=== PATIENT | male | born 1965 | race Caucasian/White ===

== ENCOUNTER 2022-03-18 07:30 | Inpatient (IN) | payer BC, OTHER ==
[2022-03-18 09:02] LABS: Hemoglobin 17.3 g/dL (13.5-17.5); Mean Corpuscular HGB CONC 34.3 g/dL (32.0-36.0); Mean Corpuscular Volume 87.3 fl (81.2-95.1); Mean Platelet Volume 9.3 fl (7.4-10.4); Platelet Count 249 10x3/uL (150-450); Red Blood Cell (RBC) Count 5.77 10x6/uL (4.32-5.72); White Blood Cell (WBC) Count 6.7 10x3/uL (3.5-10.5)
[2022-03-18 09:38] LABS: Anion Gap 17 mmol/L (10-20); BUN (Urea Nitrogen) 22 mg/dL (8.4-25.7); Calc. Creatinine Clearance 0 mL/min (70-130); Calcium 9.5 mg/dL (7.8-10.44); Carbon Dioxide 24 mmol/L (22-29); Chloride 95 mmol/L (98-107); Estimated GFR 88; Glucose 87 mg/dL (70-105); Potassium 4.2 mmol/L (3.5-5.1); Sodium 132 mmol/L (136-145)
[2022-03-19] MEDS ORDERED: Heparin 10,000 UNITS/1 ML VIAL 30,000 UNITS in Sodium Chloride 0.9% 1,000 ML FS SCH (07:45)
[2022-03-19] MEDS ORDERED: Midazolam HCl 5 mg/5 ml Vial ONE (07:50)
[2022-03-19] MEDS ORDERED: Fentanyl 250 MCG/5 ML VIAL ONE (07:50)
[2022-03-19] MEDS ORDERED: Dexamethasone 4 mg/ml Vial ONE (08:00)
[2022-03-19] MEDS ORDERED: Albumin 5% 500 ML ONE (08:00)
[2022-03-19] MEDS ORDERED: Bupivacaine HCl 0.5%/Epinephrine 1:200,000/PF 30 ml Vial ONE (08:00)
[2022-03-19] MEDS ORDERED: PHENYLEPHRINE-NS 100 MCG/ML 10 ML SYRINGE ONE (08:01)
[2022-03-19 08:46] LABS: SARS-CoV-2 NAA Rapid Test Not Detected (NotDetected)
[2022-03-19] MEDS ORDERED: Lidocaine 1% MPF 2 ML VIAL ONE (08:57)
[2022-03-19] MEDS ORDERED: Midazolam HCl 2 mg/2 ml Vial ONE ×2 (09:22→10:09)
[2022-03-19] MEDS ORDERED: Sodium Chloride 0.9% 100 ML ONE (10:17)
[2022-03-19] MEDS ORDERED: CEFAZOLIN 2 GM VIAL ONE (10:17)
[2022-03-19] MEDS ORDERED: Lidocaine 2% PF 100 mg/5 ml Syringe ONE (10:39)
[2022-03-19] MEDS ORDERED: Protamine Sulfate 50 MG/5 ML VIAL ONE (10:39)
[2022-03-19] MEDS ORDERED: Calcium Chloride 1 GM/10 ML Abboject SYRINGE ONE (10:39)
[2022-03-19] MEDS ORDERED: Vecuronium 10 MG VIAL ONE (10:39)
[2022-03-19] MEDS ORDERED: Cardioplegic Soln 1,000 ML BAG ONE (10:39)
[2022-03-19] MEDS ORDERED: PROPOFOL 200 MG/20 ML VIAL ONE (10:39)
[2022-03-19] MEDS ORDERED: Heparin 5,000 UNITS/ML VIAL ONE (10:39)
[2022-03-19] MEDS ORDERED: Sodium Bicarb 50 MEQ/50 ML VIAL ONE (10:39)
[2022-03-19] MEDS ORDERED: Metoclopramide HCl 10 MG/2 ML VIAL ONE (10:39)
[2022-03-19] MEDS ORDERED: Vancomycin 1 GM VIAL ONE (10:39)
[2022-03-19] MEDS ORDERED: Heparin 30,000 units/30 ml VIAL ONE (10:39)
[2022-03-19] MEDS ORDERED: Papaverine 60 MG/2 ML VIAL ONE (10:39)
[2022-03-19] MEDS ORDERED: Thrombin 5000 UNITS/5 ML VIAL ONE (10:39)
[2022-03-19] MEDS ORDERED: Aminocaproic Acid 5 GM/20 ML VIAL ONE (10:39)
[2022-03-19] MEDS ORDERED: Mannitol 12.5 GM/50 ML ONE (10:39)
[2022-03-19] MEDS ORDERED: hydrALAZINE 20 MG/ML VIAL SLOW IVP PRN (13:04)
[2022-03-19] MEDS ORDERED: Bisacodyl 5 MG TAB PO PRN (13:04)
[2022-03-19] MEDS ORDERED: niCARdipine 25 MG in Sodium Chloride 0.9% 250 ML 250 ML IVPB PRN (13:04)
[2022-03-19] MEDS ORDERED: Bisacodyl 10 MG SUPP PR PRN (13:04)
[2022-03-19] MEDS ORDERED: Mag-Al 1200 mg/1200 mg/30 ML UDCUP PO PRN (13:04)
[2022-03-19] MEDS ORDERED: Acetaminophen 325 MG TAB PO PRN (13:04)
[2022-03-19] MEDS ORDERED: Guaifenesin DM 100-10/5 ML UDCUP PO PRN (13:04)
[2022-03-19] MEDS ORDERED: NOREPINEPHRINE 8 MG/250 ML-D5W 250 ML IVPB PRN (13:04)
[2022-03-19] MEDS ORDERED: Ondansetron PF 4 MG/2 ML Vial IVP PRN (13:04)
[2022-03-19] MEDS ORDERED: Lactated Ringer's 1,000 ML IV SCH (13:04)
[2022-03-19] MEDS ORDERED: Potassium Chloride 20 MEQ/100 ML PREMIX BAG IVPB PRN (13:04)
[2022-03-19] MEDS ORDERED: Hetastarch 6% 500 ML 500 ML IVPB PRN (13:04)
[2022-03-19] MEDS ORDERED: FENTANYL 50 MCG/ML 1 ML VIAL SLOW IVP PRN ×2 (13:15→13:16)
[2022-03-19] MEDS ORDERED: Morphine 4 MG/ML VIAL SLOW IVP PRN (13:23)
[2022-03-19] MEDS ORDERED: Ketorolac Tromethamine 30 MG/ML VIAL IVP SCH (13:30)
[2022-03-19] MEDS ORDERED: Dextrose 50% Abboject 50 ML SYRINGE SLOW IVP PRN (13:30)
[2022-03-19] MEDS ORDERED: Dextrose 5% in Water 1,000 ML IV PRN (13:30)
[2022-03-19 13:41] LABS: Actual Bicarbonate (HCO3a) 23.7 mEq/L (22-28); Base Excess (BEa) -2.4 mEq/L (-2.0 to +3.0); CO2 Tension 45.2 mmHg (35.0-45.0); Calcium, Ionized (arterial) 1.09 mmol/L (1.12-1.30); Carboxyhemoglobin (COHb) 0.8 gm% (0.0-3.0); Hemoglobin (Hb) 16.2 g/dL (14.0-18.0); O2 Tension (PaO2), arterial 112.1 mmHg (80.0-100.0); Potassium - ABG Lab 4.25 mmol/L (3.70-5.30); pH, Arterial 7.34 (7.35-7.45)
[2022-03-19 13:43] LABS: Puncture Site Arterial Line
[2022-03-19] MEDS: Insulin Regular 300 UNITS/3 ML VIAL SC PRN ×4 (13:48→22:59)
[2022-03-19 14:18] LABS: Hemoglobin 15.4 g/dL (14.0-18.0); Mean Corpuscular Hemoglobin 30.7 pg (27.0-31.0); Mean Platelet Volume 7.1 fL (7.4-10.4); Platelet Count 218 10x3/uL (130-400); RBC Distribution Width 12.9 % (11.5-14.5); Red Blood Cell (RBC) Count 5.02 mill/uL (4.70-6.10)
[2022-03-19 14:28] LABS: Anion Gap 13 mmol/L (10-20); BUN (Urea Nitrogen) 15 mg/dL (8.4-25.7); Calc. Creatinine Clearance 126 mL/min (70-130); Calcium 7.4 mg/dL (7.8-10.44); Carbon Dioxide 21 mmol/L (22-29); Chloride 103 mmol/L (98-107); Estimated GFR 103; Glucose 136 mg/dL (70-105); Potassium 4.3 mmol/L (3.5-5.1); Sodium 133 mmol/L (136-145)
[2022-03-19 14:36] LABS: INR-International Normal Ratio 1.3; PTT 28.7 sec (22.9-36.1); Prothrombin Time 16.8 sec (12.0-14.7)
[2022-03-19 14:39] LABS: Band 20 % (5-11); Lymphocytes 3 % (21-51); MDiff Complete? YES; Monocytes 4 % (0-10); Neutrophil 71 % (42-75); Platelet Morphology Comment Appears Adequate; RBC Morphology Normal; Reactive Lymphocytes 2 % (0-10)
[2022-03-19 14:43] VITALS: BMI 24.6
[2022-03-19 15:18] LABS: Actual Bicarbonate (HCO3a) 22.4 mEq/L (22-28); Base Excess (BEa) -2.5 mEq/L (-2.0 to +3.0); CO2 Tension 39.6 mmHg (35.0-45.0); Calcium, Ionized (arterial) 1.11 mmol/L (1.12-1.30); Carboxyhemoglobin (COHb) 0.7 gm% (0.0-3.0); Hemoglobin (Hb) 16.8 g/dL (14.0-18.0); O2 Tension (PaO2), arterial 81.4 mmHg (80.0-100.0); Potassium - ABG Lab 3.91 mmol/L (3.70-5.30); pH, Arterial 7.37 (7.35-7.45)
[2022-03-19] MEDS: traMADol HCl 50 MG TAB PO PRN ×2 (15:44→19:53)
[2022-03-19 17:17] LABS: Puncture Site Arterial Line
[2022-03-19] MEDS: Ketorolac Tromethamine 30 MG/ML VIAL IVP SCH ×2 (17:28→23:02)
[2022-03-19] MEDS: CEFAZOLIN 2 GM in Sodium Chloride 0.9% 100 ML IVPB SCH (17:28)
[2022-03-19 18:11] LABS: Hemoglobin 15.7 g/dL (14.0-18.0)
[2022-03-19 18:26] LABS: Potassium 4.4 mmol/L (3.5-5.1)
[2022-03-19] MEDS ORDERED: Famotidine/PF 20 mg/2ml Vial SLOW IVP SCH (21:00)
[2022-03-19] MEDS ORDERED: Atorvastatin Calcium 20 MG TAB PO SCH (21:00)
[2022-03-20] MEDS: CEFAZOLIN 2 GM in Sodium Chloride 0.9% 100 ML IVPB SCH ×2 (01:03→09:00)
[2022-03-20 05:03] LABS: #Lymphocytes 0.8 thou/uL (1.20-3.40); #Monocytes 1.7 thou/uL (0.11-0.59); #Neutrophils 11.9 thou/uL (1.40-6.50); %Eosinophils 0.3 % (0.0-10.0); %Lymphocytes 5.6 % (21.0-51.0); %Monocytes 11.6 % (0.0-10.0); %Neutrophils 82.5 % (42.0-75.0); Hemoglobin 14.4 g/dL (14.0-18.0); Mean Corpuscular HGB CONC 33.1 g/dL (32.0-36.0); Mean Corpuscular Hemoglobin 31.1 pg (27.0-31.0); Mean Corpuscular Volume 93.7 fl (78.0-98.0); Mean Platelet Volume 7.7 fL (7.4-10.4); Platelet Count 210 10x3/uL (130-400); Red Blood Cell (RBC) Count 4.64 mill/uL (4.70-6.10); White Blood Cell (WBC) Count 14.4 10x3/uL (4.8-10.8)
[2022-03-20] MEDS: Ketorolac Tromethamine 30 MG/ML VIAL IVP SCH ×4 (05:05→23:06)
[2022-03-20] MEDS: traMADol HCl 50 MG TAB PO PRN ×4 (05:06→21:02)
[2022-03-20] MEDS: Insulin Regular 300 UNITS/3 ML VIAL SC PRN (06:12)
[2022-03-20 06:25] LABS: Anion Gap 12 mmol/L (10-20); BUN (Urea Nitrogen) 16 mg/dL (8.4-25.7); Calc. Creatinine Clearance 137 mL/min (70-130); Calcium 7.9 mg/dL (7.8-10.44); Carbon Dioxide 21 mmol/L (22-29); Chloride 102 mmol/L (98-107); Estimated GFR 104; Glucose 113 mg/dL (70-105); Potassium 3.6 mmol/L (3.5-5.1); Sodium 131 mmol/L (136-145)
[2022-03-20] MEDS: Furosemide 40 MG TAB PO SCH (07:37)
[2022-03-20] MEDS: Potassium Chloride 20 MEQ TAB PO SCH (07:37)
[2022-03-20] MEDS: Magnesium 2 GM/50 ML(in water) 2 GM in Premix Bag 1 BAG IVPB SCH (08:04)
[2022-03-20] MEDS: Metoprolol Tartrate 25 MG TAB PO SCH ×2 (08:04→22:29)
[2022-03-20] MEDS ORDERED: Aspirin 325 MG TAB PO SCH (09:00)
[2022-03-20] MEDS ORDERED: Mag-Al 1200 mg/1200 mg/30 ML UDCUP PO PRN (12:41)
[2022-03-20] MEDS ORDERED: Bisacodyl 10 MG SUPP PR PRN (12:41)
[2022-03-20] MEDS ORDERED: Mineral Oil ENEMA PR PRN (12:41)
[2022-03-20] MEDS ORDERED: Nitroglycerin 0.4 MG TAB (25 Tab Bottle) SL PRN (12:41)
[2022-03-20] MEDS ORDERED: Bisacodyl 5 MG TAB PO PRN (12:41)
[2022-03-20] MEDS ORDERED: Guaifenesin DM 100-10/5 ML UDCUP PO PRN (12:41)
[2022-03-20] MEDS ORDERED: Zolpidem Tartrate 5 MG TAB PO PRN (12:41)
[2022-03-20] MEDS: Atorvastatin Calcium 40 MG TAB PO SCH (21:02)
[2022-03-20] MEDS: diphenhydrAMINE 25 MG CAP PO PRN (21:02)
[2022-03-21 04:23] LABS: Cardiac Risk 4.3 (Less than 4.5)
[2022-03-21] MEDS: Ketorolac Tromethamine 30 MG/ML VIAL IVP SCH ×3 (05:27→18:11)
[2022-03-21] MEDS: Potassium Chloride 20 MEQ TAB PO SCH (08:13)
[2022-03-21] MEDS: Aspirin 325 mg Enteric Coated Tablet PO SCH (08:13)
[2022-03-21] MEDS: Furosemide 40 MG TAB PO SCH (08:14)
[2022-03-21] MEDS: traMADol HCl 50 MG TAB PO PRN ×2 (08:14→20:39)
[2022-03-21] MEDS: Metoprolol Tartrate 25 MG TAB PO SCH (08:14)
[2022-03-21] MEDS: Magnesium 2 GM/50 ML(in water) 2 GM in Premix Bag 1 BAG IVPB SCH (08:16)
[2022-03-21] MEDS: Atorvastatin Calcium 40 MG TAB PO SCH (20:37)
[2022-03-21] MEDS: diphenhydrAMINE 25 MG CAP PO PRN (20:39)
[2022-03-22] MEDS: Ketorolac Tromethamine 30 MG/ML VIAL IVP SCH ×2 (00:12→05:11)
[2022-03-22] MEDS: traMADol HCl 50 MG TAB PO PRN (05:12)
[2022-03-22] MEDS: Furosemide 40 MG TAB PO SCH (09:35)
[2022-03-22] MEDS: Aspirin 325 mg Enteric Coated Tablet PO SCH (09:35)
[2022-03-22] MEDS: Potassium Chloride 20 MEQ TAB PO SCH (09:36)
[2022-03-22 11:58] VITALS: BP 129/76; TEMP 98.2
[2022-03-22] MEDS ORDERED: FLU VACC QS2022-23(6MOS UP)/PF 60 MCG/0.5 ML SYRINGE IM ONE (14:45)
== END 2022-03-22 11:45 | disposition home or self-care (01) | DRG 236 ==
LOC: EEVIPCON 03-19 07:28 → SURG A 03-19 07:28 → CCU 03-19 13:36 → IMCU/EMU 03-21 01:55 → 2NO 03-22 00:25
PROVIDERS: ADMIT Thoracic Surgery (Cardiothoracic Vascular Surgery); ATTEND Thoracic Surgery (Cardiothoracic Vascular Surgery)
PROC: 02100Z9 Bypass Coronary Artery, One Artery from Left Internal Mammary, Open Approach (ICD-10-PCS; principal; 2022-03-19)
PROC: 021109W Bypass Coronary Artery, Two Arteries from Aorta with Autologous Venous Tissue, Open Approach (ICD-10-PCS; 2022-03-19)
PROC: 06BQ4ZZ Excision of Left Saphenous Vein, Percutaneous Endoscopic Approach (ICD-10-PCS; 2022-03-19)
PROC: 5A1221Z Performance of Cardiac Output, Continuous (ICD-10-PCS; 2022-03-19)
PROC: 02L70CK Occlusion of Left Atrial Appendage with Extraluminal Device, Open Approach (ICD-10-PCS; 2022-03-19)
DX: I25.10 Atherosclerotic heart disease of native coronary artery without angina pectoris (principal); I50.22 Chronic systolic (congestive) heart failure; E78.5 Hyperlipidemia, unspecified; I11.0 Hypertensive heart disease with heart failure; K21.9 Gastro-esophageal reflux disease without esophagitis; E78.2 Mixed hyperlipidemia; Z20.822 Contact with and (suspected) exposure to COVID-19; Z98.890 Other specified postprocedural states
CPT/HCPCS: 36416; 36430; 71045; 71046; 80048; 80061; 82805; 85025; 85027; 85610; 85730; 86850; 86900; 86901; 93005; 93010; 93798; 94002; 94150; 97139; C1751; C1776; J1100; J1642; J1644; J1815; J1885; J2001; J2150; J2250; J2440; J2704; J2720; J2765; J3010; J3370; J3475; J3480; J3490; J7050; J7120; P9045; S0017; S0028; U0002

== ENCOUNTER 2022-03-18 07:33 | Outpatient (CLI) | payer BC, OTHER | END 2022-03-18 07:34 | disposition home or self-care (01) | LOC: LABBT 07:33 | PROVIDERS: ATTEND Thoracic Surgery (Cardiothoracic Vascular Surgery) | DX: Z01.818 Encounter for other preprocedural examination (principal); I25.10 Atherosclerotic heart disease of native coronary artery without angina pectoris | CPT/HCPCS: 71046; 80048; 85027; 86850; 86900; 86901; 93005; 93010 ==